=== PATIENT | female | born 1940 | race Caucasian/White ===

== ENCOUNTER → 2016-09-29 | Outpatient (CLI) | payer MEDICARE, OTHER ==
[~2016-09-29] MED LIST: ASPIRIN LO-DOSE81 MG PO; CITRACAL+D(315M1 TAB PO; COUMADIN ** 9/62 MG PO; COUMADIN **IA1 MG PO; HYGROTON25 MG PO; LIPITOR20 M1 PO; PRILOSEC20 MG PO; PRINIVIL (ZESTRI5 MG PO; TOPROL XL25 MG PO
== END | disposition disaster alternative care site (69) ==
LOC: GBCOE 15:44
DX: Z12.31 Encounter for screening mammogram for malignant neoplasm of breast (principal)
CPT/HCPCS: G0202

== ENCOUNTER → 2016-12-24 | Outpatient (CLI) | payer MEDICARE, OTHER | END | disposition disaster alternative care site (69) | LOC: GRAD 07:25 | DX: M72.2 Plantar fascial fibromatosis (principal); M25.471 Effusion, right ankle; M79.671 Pain in right foot; R93.7 Abnormal findings on diagnostic imaging of other parts of musculoskeletal system ==